=== PATIENT | male | born 1985 | race Caucasian/White ===

== ENCOUNTER 2019-08-15 06:39 | Outpatient (CLI) | payer OTHER, SELFPAY ==
--- NOTE | ~2019-08-15 | MR_ITS ---
EXAMINATION: MR lumbar spine wo con DATE: 08/15/2019 07:52 INDICATION: Low back pain. TECHNIQUE: Magnetic resonance imaging (MRI) of the lumbar spine was performed without intravenous con trast. Sequences included sagittal T2-weighted FSE, sagittal T2-weighted FS FSE, sagittal T1-weighted FSE, and axial T2-weighted FSE. COMPARISON: None FINDINGS: Bone alignment is normal. Vertebral body heights and intervertebral disc heights are normal . The distal spinal cord signal intensity is normal. The conus medullaris is at L1-L2. The following disc levels are specifically discussed: L1-L2: The disc does not extend beyond the endplate margin. There is mild bilateral facet joint osteo arthritis. There is no neural foraminal stenosis. There is no central canal stenosis. L2-L3: The disc does not extend beyond the endplate margin. There is mild bilateral facet joint osteo arthritis. There is no neural foraminal stenosis. There is no central canal stenosis. L3-L4: The disc does not extend beyond the endplate margin. There is no facet joint osteoarthritis. T here is no neural foraminal stenosis. There is no central canal stenosis. L4-L5: The disc is bulging and has an annular fissure. There is mild bilateral facet joint osteoarthr itis. There is mild right and moderate left neural foraminal stenosis. There is mild central canal st enosis. L5-S1: The disc does not extend beyond the endplate margin. There is mild bilateral facet joint osteo arthritis. There is no neural foraminal stenosis. There is no central canal stenosis. IMPRESSION: 1. Moderate spondylosis at L4-L5. Reviewed, dictated and finalized at location A.
== END 2019-08-15 06:40 | disposition home or self-care (01) ==
PROVIDERS: PCP Physician Assistant; Visit Provider Physician Assistant
DX: M54.5 Low back pain (principal); M47.896 Other spondylosis, lumbar region
CPT/HCPCS: 72148

== ENCOUNTER 2021-09-11 14:25 | Emergency (ER) | payer OTHER, SELFPAY ==
--- NOTE | ~2021-09-11 | XR_ITS ---
EXAMINATION: XR chest 2V Exam Date/Time: 09/11/2021 14:40 CDT CLINICAL HISTORY: HX COVID,PRODUCTIVE COUGH Comparison: 06/18/07. RESULT: Lines, tubes, and devices: None. Lungs and pleura: Clear. Cardiomediastinal silhouette: Stable cardiomediastinal silhouette. Other: No acute osseous or upper abdominal finding. IMPRESSION: No acute cardiopulmonary process Reviewed, dictated and finalized at location K.
[2021-09-11 14:34] VITALS: BP 138/94; PULSE 71; RESP 14; TEMP 36.6; O2SAT 100
[2021-09-11 14:43] VITALS: BP 138/94; PULSE 71; RESP 14; TEMP 36.6; O2SAT 100
--- NOTE | 2021-09-11 15:47 | ED.URI ---
HPI - URI/Sore Throat General Chief Complaint: Upper Respiratory Infection Stated Complaint: Sinus Congestion Time Seen by Provider: 09/11/21 15:47 Source: patient, RN notes reviewed and old records reviewed Mode of arrival: ambulatory Limitations: no limitations History of Present Illness HPI Narrative: 36year old male presents to [facility] care with 6 week duration off and on of sinus congestion and drainage of green mucoid drainage especially in the morning with cough mostly dry except in mornings. Patient reports that he has had no fevers, chest pain or pressure or any palpitation, no peripheral edema noted. Patient denies any sore throat or any wheezing. He states that his PCP wanted him to have chest x-ray completed since he just had COVID in July of 2021. MD elicited complaint: cough, rhinorrhea, nasal congestion and other (sinus pressure) Related Data Allergies Allergy/AdvReac Type Severity Reaction Status Date / Time amoxicillin Allergy Mild Rash Verified 09/11/21 14:41 Penicillins Allergy Mild Rash Verified 09/11/21 14:41 BEE STINGS Allergy Mild Swelling Uncoded 05/24/21 14:56 Review of Systems Review of Systems: CONSTITUTIONAL: Denies fever, chills, or sweats. EYES: Denies visual changes, redness, or discharge. ENT: Positive for rhinorrhea, congestion,no sore throat, positive for ears popping CARDIOVASCULAR: Denies chest pain, palpitations, or edema. RESPIRATORY: Positive for cough denies dyspnea. GASTROINTESTINAL: Denies abdominal pain, nausea, vomiting, or diarrhea. GENITOURINARY: Denies dysuria or hematuria. SKIN: Denies rash or itching. MUSCULOSKELETAL: Denies back pain, joint pain, or myalgia. NEUROLOGIC: Denies headache, numbness, or weakness. PSYCHIATRIC: Denies anxiety or depression. All systems reviewed & are unremarkable except as noted in HPI and below PMFSH Past Medical History Medical History (Updated 09/12/21 @ 18:13 by Diamond Landry NP) Fracture of right ankle Surgical History Surgical History (Updated 09/12/21 @ 18:12 by Diamond Landry NP) Hx of tonsillectomy Family History Family History Father Hypertension Mother Patient's mother is in good health Social History Social History (Updated 09/12/21 @ 18:13 by Diamond Landry NP) Years smoked: 4 Smoking status: Current some day smoker Tobacco type: cigars Second hand tobacco smoke exposure: No Smoking end date: 05/11/04 Alcohol intake: current Alcohol use details: social Substance use type: does not use Living arrangements: with family Gender identity (if verbalized by the patient): Male Comments At time of signature, agree with nursing past medical, surgical, social and family history. There is no relevant family history pertinent to the presenting complaint Exam Narrative: GENERAL: Well-appearing, well-nourished, and in no acute distress. HEAD: Normocephalic, atraumatic. EYES: PERRLA and EOMI. ENT: Nares with mild redness clear rhinorrhea noted, no epistaxis. Mucous membranes moist.TM's normal with dull light reflex, throat mild redness not lesion or tonsils noted. NECK: Supple.no lymphadenopathy CHEST: Clear to auscultation. No respiratory distress.SAO2 100% on room air HEART: Regular rate and rhythm. No murmur heard. Normal peripheral pulses. ABDOMEN: Soft, nontender, nondistended, normal active bowel sounds. EXTREMITIES: Normal range of motion. No edema. SKIN: Warm, dry, no rash. NEURO: No focal deficits. Alert and oriented x3. Course Course Level of Care: Express Care Visit Vital Signs Vital signs: Vital Signs Temperature 36.6 C 09/11/21 14:34 Pulse Rate 71 09/11/21 14:34 Respiratory Rate 14 09/11/21 14:34 Blood Pressure 138/94 H 09/11/21 14:34 Pulse Oximetry 100 09/11/21 14:34 Temperature 36.6 C 09/11/21 14:43 Pulse Rate 71 09/11/21 14:43 Respiratory Rate 14 09/11/21 14:43 Blood Pressure 138/94 H
== END 2021-09-11 16:05 | disposition home or self-care (01) ==
PROVIDERS: Emergency Provider Registered Nurse; PCP Physician Assistant
DX: J32.9 Chronic sinusitis, unspecified (principal); R05.9 Cough, unspecified; F17.290 Nicotine dependence, other tobacco product, uncomplicated
CPT/HCPCS: 71046; 99213; G0463